=== PATIENT | male | born 1985 | race Caucasian/White ===

== ENCOUNTER 2021-01-28 23:55 | Emergency (ER) | payer SELFPAY ==
[~2021-01-28] VITALS: Ht 162.6 cm; Wt 74.8 kg
[2021-01-28 23:55] VITALS: BP 177/114
--- NOTE | 2021-01-28 23:55 | NUR ---
MICHELLE MILES. TAKEN TO CHAIR C
--- NOTE | 2021-01-29 00:36 | NUR ---
PT TAKEN TO RAD.
--- NOTE | 2021-01-29 01:34 | NUR ---
PATIENT BIB [facility]. PATIENT EXAMINED BY . PATIENT MEDICALLY CLEARED AND RELEASED IN CUSTODY IN STABLE CONDITION. ORIGINAL PRE-BOOK FORM GIVEN TO OFFICER CORINNE, #[id number].
== END 2021-01-29 01:34 ==
LOC: MED 23:55
DX: M25.512 Pain in left shoulder (principal); Z02.89 Encounter for other administrative examinations; V57.5XXA Driver of pick-up truck or van injured in collision with fixed or stationary object in traffic accident, initial encounter; Y93.89 Activity, other specified; Y92.89 Other specified places as the place of occurrence of the external cause; Y99.8 Other external cause status
CPT/HCPCS: 73030; 99283